=== PATIENT | female | born 1970 | race African-American/Black ===

== ENCOUNTER 2018-10-12 02:08 | Emergency (ER) | payer SELFPAY ==
[~2018-10-12] VITALS: Ht 160 cm; Wt 59.9 kg
[2018-10-12 02:09] VITALS: BP_SYST 119
== END 2018-10-12 02:38 ==
LOC: SED 02:08
DX: Z02.89 Encounter for other administrative examinations (principal); F10.10 Alcohol abuse, uncomplicated; V43.52XA Car driver injured in collision with other type car in traffic accident, initial encounter; Y93.89 Activity, other specified; Y92.410 Unspecified street and highway as the place of occurrence of the external cause; Y99.8 Other external cause status
CPT/HCPCS: 99283